=== PATIENT | male | born 1960 | race Caucasian/White ===

== ENCOUNTER 2018-01-03 07:35 | Outpatient (CLI) | payer OTHER ==
--- NOTE | 2018-01-03 08:31 | ULT ---
GALLBLADDER U LTRASOUND: Date: 01/03/18 HISTORY: Hepatitis C. FINDINGS: Gallbladder has a normal sonographic appearance. No evidence of gallstones. Common duct is normal deven iber at 3.0 mm. The visualized liver appears unremarkable. Aorta and IVC appear unremarkable as image d. Right kidney is imaged and appears unremarkable. Pancreas is mostly obscured. Visualized portions of the pancreas appear unremarkable. IMPRESSION: Unremarkable right upper quadrant ultrasound. POS: [facility]
== END 2018-01-03 07:36 | disposition home or self-care (01) ==
LOC: MADRAD 07:35
PROVIDERS: ATTEND Internal Medicine Gastroenterology
DX: B18.2 Chronic viral hepatitis C (principal)
CPT/HCPCS: 76705

== ENCOUNTER 2018-01-16 11:52 | Outpatient (CLI) | payer OTHER ==
--- NOTE | 2018-01-16 12:46 | RAD ---
RIGHT HIP: Two views. HISTORY: Right hip pain. FINDINGS: Femoral head contour is normal. Minimal degenerative change with minimal spurring from the femoral h ead. Joint space appears normal. No fracture or acute abnormality. IMPRESSION: Minimal degenerative change at right hip. POS: [facility]
--- NOTE | 2018-01-16 12:47 | RAD ---
TWO VIEWS LEFT HIP: 01/16/2018 HISTORY: Chronic left hip pain. FINDINGS/IMPRESSION: There is no evidence of a fracture, dislocation, or other osseous abnormality involving the left hip. POS: [facility]
--- NOTE | 2018-01-16 14:26 | RAD ---
THREE VIEWS LUMBAR SPINE: 01/16/2018 HISTORY: Chronic low back pain without history of trauma. FINDINGS: There are 5 [id number] lumbar-type vertebral bodies. The vertebral body heights are within norm al limits. There is mild narrowing of the L5-S1 intervertebral disk space with endplate degenerative changes at this level. No fracture or subluxation is seen. Minimal osteophytes are seen involving the lower lumbar spine. Vascular calcification seen at the thoracic aorta. IMPRESSION: 1. Mild degenerative changes in the lower lumbar spine, but no fracture or subluxation is seen. 2. Atherosclerotic vascular calcifications in the abdominal aorta and iliac arteries. POS: [facility]
--- NOTE | 2018-01-16 15:37 | RAD ---
PA AND LATERAL CHEST X-RAY: 01/16/2018 HISTORY: Hemoptysis. History of smoking. COMPARISON: None available. FINDINGS: The cardiac silhouette and pulmonary vasculature are within normal limits. The lungs are clear. Mul tiple anchor screws overlie the left humeral head. Remote lateral left-sided rib fractures are prese nt. IMPRESSION: No acute cardiopulmonary process. POS: [facility]
== END 2018-01-16 11:53 | disposition home or self-care (01) ==
LOC: MADRAD 11:52
PROVIDERS: ATTEND Physician Assistant
DX: M54.5 Low back pain (principal); R04.2 Hemoptysis; M47.896 Other spondylosis, lumbar region; I70.0 Atherosclerosis of aorta; I70.8 Atherosclerosis of other arteries
CPT/HCPCS: 71046; 72100

== ENCOUNTER 2018-01-21 10:51 | Emergency (ER) | payer OTHER ==
[2018-01-21] MEDS ORDERED: AMOXicillin 250 MG CAP ONE (11:24)
[2018-01-21] MEDS ORDERED: Dexamethasone 10 MG/ML VIAL ONE (11:24)
[2018-01-21] MEDS ORDERED: methylPREDNISolone Sod Succ/PF 125 MG/2 ML VIAL ONE (11:24)
[2018-01-21] MEDS ORDERED: Phenergan/Codeine 10-6.25mg/5ml UDCUP ONE (11:24)
[2018-01-21 11:43] LABS: #Basophils 0.1 thou/uL (0.0-0.2); #Eosinphils 0.1 thou/uL (0.0-0.7); #Lymphocytes 2.8 thou/uL (1.20-3.40); #Monocytes 0.8 thou/uL (0.11-0.59); #Neutrophils 9.1 thou/uL (1.40-6.50); %Basophils 0.7 % (0.0-1.0); %Eosinophils 0.4 % (0.0-10.0); %Monocytes 5.9 % (0.0-10.0); Hemoglobin 12.4 g/dL (14.0-18.0); Mean Corpuscular Hemoglobin 30.4 pg (27.0-31.0); Mean Corpuscular Volume 92.1 fl (80.0-94.0); Mean Platelet Volume 6.4 fL (7.4-10.4); Platelet Count 402 thou/uL (130-400); RBC Distribution Width 12.7 % (11.5-14.5); Red Blood Cell (RBC) Count 4.09 mill/uL (4.70-6.10); White Blood Cell (WBC) Count 12.8 thou/uL (4.8-10.8)
[2018-01-21] MEDS ORDERED: Magnesium Sulfate 2 GM/NS 0.9% 50 ML BAG ONE (11:44)
[2018-01-21 11:58] LABS: CKMB 4.3 ng/mL (0-6.6); Troponin I Less than 0.010 ng/mL (< 0.028)
--- NOTE | 2018-01-21 13:17 | RAD ---
PORTABLE CHEST: Date: 01/21/18 HISTORY: Cough. FINDINGS: Heart size and mediastinum are within normal limits. Lungs are clear of any infiltrative process. Pos toperative changes left shoulder noted. IMPRESSION: No active intrathoracic disease. POS: [facility]
== END 2018-01-21 13:05 | disposition home or self-care (01) ==
LOC: MADERS 10:51
DX: J20.9 Acute bronchitis, unspecified (principal); E11.9 Type 2 diabetes mellitus without complications; Z79.899 Other long term (current) drug therapy; Z79.82 Long term (current) use of aspirin; Z79.84 Long term (current) use of oral hypoglycemic drugs
CPT/HCPCS: 71045; 82553; 83880; 84484; 85025; 94640; 96365; 96375; J1100; J2930; J3475; J7620

== ENCOUNTER 2018-02-01 13:26 | Emergency (ER) | payer OTHER ==
[~2018-02-01 13:26] MED LIST: Sodium Chloride 0.9% 1,000 ML BAG ONE
[2018-02-01 14:08] LABS: #Basophils 0.1 thou/uL (0.0-0.2); #Lymphocytes 1.9 thou/uL (1.20-3.40); #Monocytes 0.3 thou/uL (0.11-0.59); #Neutrophils 12.8 thou/uL (1.40-6.50); %Basophils 0.4 % (0.0-1.0); %Eosinophils 0.1 % (0.0-10.0); %Lymphocytes 12.4 % (21.0-51.0); %Monocytes 1.9 % (0.0-10.0); %Neutrophils 85.2 % (42.0-75.0); Hemoglobin 12.5 g/dL (14.0-18.0); Mean Corpuscular HGB CONC 32.6 g/dL (32.0-36.0); Mean Corpuscular Hemoglobin 29.8 pg (27.0-31.0); Mean Corpuscular Volume 91.4 fl (80.0-94.0); Mean Platelet Volume 6.2 fL (7.4-10.4); Platelet Count 408 thou/uL (130-400)
[2018-02-01] MEDS ORDERED: AMOXicillin 250 MG CAP ONE (14:16)
[2018-02-01] MEDS ORDERED: Dexamethasone 10 MG/ML VIAL ONE (14:16)
[2018-02-01] MEDS ORDERED: Benzonatate 100 MG CAP ONE (14:16)
[2018-02-01] MEDS ORDERED: Magnesium Sulfate 2 GM/NS 0.9% 50 ML BAG ONE (14:16)
[2018-02-01] MEDS ORDERED: methylPREDNISolone Sod Succ/PF 125 MG/2 ML VIAL ONE (14:16)
[2018-02-01 14:17] LABS: Prothrombin Time 13.5 SEC (12.0-14.7)
[2018-02-01 14:28] LABS: ALT (SGPT) 44 U/L (8-55); AST (SGOT) 21 U/L (5-34); Albumin 3.9 g/dL (3.5-5.0); Alkaline Phosphatase 55 U/L (40-150); Anion Gap 18 mmol/L (10-20); BUN (Urea Nitrogen) 19 mg/dL (8.4-25.7); Bilirubin, Total 0.3 mg/dL (0.2-1.2); CK (CPK) 104 U/L (30-200); Calc. Creatinine Clearance 0 mL/min (70-130); Calcium 9.1 mg/dL (7.8-10.44); Carbon Dioxide 24 mmol/L (22-29); Chloride 99 mmol/L (98-107); Estimated GFR-MDRD 80; Globulin 3.2 g/dL (2.4-3.5); Glucose 206 mg/dL (70-105); Potassium 3.9 mmol/L (3.5-5.1); Protein, Total 7.1 g/dL (6.0-8.3); Sodium 137 mmol/L (136-145)
[2018-02-01 14:33] LABS: CKMB 4.8 ng/mL (0-6.6); Troponin I 0.011 ng/mL (< 0.028)
--- NOTE | 2018-02-01 15:11 | RAD ---
CHEST PA AND LATERAL 2 VIEWS: Date: 02/01/18 HISTORY: 57-year-old male with history of dyspnea for 1 month. History of COPD. COMPARISON: 01/16/18. FINDINGS: Heart size is normal. Minimal stable bilateral pleural thickening. Atherosclerosis of aorta. Postop c hanges left shoulder. IMPRESSION: Mild stable chronic lung changes. No evidence of pneumonia or other acute process. POS: [facility]
== END 2018-02-01 17:35 | disposition home or self-care (01) ==
LOC: MADERS 13:26
DX: J44.9 Chronic obstructive pulmonary disease, unspecified (principal); E11.40 Type 2 diabetes mellitus with diabetic neuropathy, unspecified; F31.9 Bipolar disorder, unspecified; F41.9 Anxiety disorder, unspecified; I10 Essential (primary) hypertension; Z87.891 Personal history of nicotine dependence; Z79.84 Long term (current) use of oral hypoglycemic drugs; Z79.82 Long term (current) use of aspirin; Z79.899 Other long term (current) drug therapy
CPT/HCPCS: 71046; 80053; 82553; 83880; 84484; 85025; 85610; 85730; 87081; 87430; 87804; 93005; 94760; 96361; 96365; 96375; J1100; J2930; J3475; J7050; J7620

== ENCOUNTER 2018-02-09 12:04 | Emergency (ER) | payer OTHER ==
[2018-02-09] MEDS ORDERED: methylPREDNISolone Sod Succ/PF 125 MG/2 ML VIAL ONE (12:38)
[2018-02-09 12:45] LABS: Hemoglobin 13.5 g/dL (14.0-18.0); Mean Corpuscular Hemoglobin 29.7 pg (27.0-31.0); Mean Corpuscular Volume 91.3 fL (80.0-94.0); Red Blood Cell (RBC) Count 4.53 mill/uL (4.70-6.10); White Blood Cell (WBC) Count 10.9 thou/uL (4.8-10.8)
[2018-02-09 12:46] LABS: #Eosinphils 0.1 thou/uL (0.0-0.7); #Lymphocytes 3.1 thou/uL (1.20-3.40); #Monocytes 0.8 thou/uL (0.11-0.59); %Basophils 0.4 % (0.0-1.0); %Eosinophils 0.7 % (0.0-10.0); %Lymphocytes 27.9 % (21.0-51.0); %Monocytes 7.1 % (0.0-10.0); Mean Corpuscular HGB CONC 32.6 g/dL (32.0-36.0); Platelet Count 383 thou/uL (130-400); RBC Distribution Width 13.2 % (11.5-14.5)
[2018-02-09 12:58] LABS: ALT (SGPT) 42 U/L (8-55); AST (SGOT) 23 U/L (5-34); Albumin 3.7 g/dL (3.5-5.0); Alkaline Phosphatase 63 U/L (40-150); Anion Gap 17 mmol/L (10-20); BUN (Urea Nitrogen) 13 mg/dL (8.4-25.7); Bilirubin, Total 0.4 mg/dL (0.2-1.2); Calc. Creatinine Clearance 0 mL/min (70-130); Calcium 9.2 mg/dL (7.8-10.44); Carbon Dioxide 24 mmol/L (22-29); Chloride 97 mmol/L (98-107); Estimated GFR-MDRD 86; Globulin 3.2 g/dL (2.4-3.5); Glucose 103 mg/dL (70-105); Magnesium 1.5 mg/dL (1.6-2.6); Potassium 4.4 mmol/L (3.5-5.1); Protein, Total 6.9 g/dL (6.0-8.3); Sodium 134 mmol/L (136-145)
[2018-02-09 13:00] LABS: CKMB 4.4 ng/mL (0-6.6); Troponin I Less than 0.010 ng/mL (< 0.028)
[2018-02-09] MEDS ORDERED: Magnesium Sulfate 2 GM/NS 0.9% 50 ML BAG ONE (13:10)
--- NOTE | 2018-02-09 13:26 | RAD ---
CHEST ONE VIEW: HISTORY: Dyspnea. COMPARISON: Chest radiograph from 01/21/2018. FINDINGS: There is prominence of the right superior hilum, which is better seen on today's exam than on the byron or. No pneumothorax. No effusion. Multiple left-sided humeral tendon suture anchors. IMPRESSION: Mild prominence of the right superior hilum, appears to represent the pulmonary vessel en face versus a mass. Follow-up CT chest, non-emergently, may be beneficial in this patient. CODE: Lung nodule POS: [facility]
--- NOTE | 2018-02-09 13:58 | CT ---
CT THORAX WITHOUT IV CONTRAST: INDICATIONS: A 57-year-old male with dyspnea and chest pain for four weeks. COMPARISON: None. FINDINGS: There are tree-in-bud nodularities seen within the anteromedial and posteromedial aspects of the righ t lower lobe. There is also some tree-in-bud nodularity within an inferior lingula. There is a smal l, noncalcified pulmonary nodule within the anterolateral right lower lobe, measuring 5 mm. There is a calcified granuloma within the right middle lobe. There are bullae involving the lung apices. Th ere is some mild centrilobular emphysema involving the upper lobes. There is paraseptal emphysema in volving the anterior aspect of the right upper lobe. There are scattered vascular calcifications. No definite pathologically enlarged lymph node is evide nt. There are coronary artery calcifications. No definite acute osseous abnormality is evident. There are tiny hypodensities within the right hepa tic dome that are too small to characterize. IMPRESSION: 1. Tree-in-bud nodularity within the right lower lobe and lingula, suspicious for respiratory bronch iolitis. 2. Mild emphysema. 3. Hypodensities within the right hepatic dome that are difficult to characterize due to their size. POS: [facility]
[2018-02-09] MEDS ORDERED: Azithromycin 500 MG VIAL ONE (14:49)
== END 2018-02-09 16:57 | disposition short-term general hospital (02) ==
LOC: MADERS 12:04
DX: J44.1 Chronic obstructive pulmonary disease with (acute) exacerbation (principal); J44.0 Chronic obstructive pulmonary disease with (acute) lower respiratory infection; J21.9 Acute bronchiolitis, unspecified; I10 Essential (primary) hypertension; E11.40 Type 2 diabetes mellitus with diabetic neuropathy, unspecified; F31.9 Bipolar disorder, unspecified; F41.9 Anxiety disorder, unspecified; Z87.891 Personal history of nicotine dependence; Z79.82 Long term (current) use of aspirin; Z79.899 Other long term (current) drug therapy
CPT/HCPCS: 71045; 71250; 80053; 82553; 83735; 83880; 84484; 85025; 85379; 93005; 94760; 96365; 96375; J0456; J2930; J3475; J7050; J7620

== ENCOUNTER 2018-09-08 10:15 | Emergency (ER) | payer OTHER ==
[2018-09-08] MEDS ORDERED: HYDROcodone/Acetaminophen 5/325 mg Tablet ONE (10:52)
[2018-09-08] MEDS ORDERED: Metoclopramide HCl 10 MG/2 ML VIAL ONE (10:53)
[2018-09-08] MEDS ORDERED: predniSONE 20 MG TAB ONE (10:53)
[2018-09-08 11:05] LABS: #Basophils 0.1 thou/uL (0.0-0.2); #Eosinphils 0.2 thou/uL (0.0-0.7); #Lymphocytes 1.5 thou/uL (1.20-3.40); #Monocytes 0.6 thou/uL (0.11-0.59); #Neutrophils 4.3 thou/uL (1.40-6.50); %Basophils 1.1 % (0.0-1.0); %Lymphocytes 22.2 % (21.0-51.0); %Monocytes 8.4 % (0.0-10.0); %Neutrophils 65.2 % (42.0-75.0); Hemoglobin 13.6 g/dL (14.0-18.0); Mean Corpuscular HGB CONC 33.1 g/dL (32.0-36.0); Mean Corpuscular Hemoglobin 31.4 pg (27.0-31.0); Mean Corpuscular Volume 94.8 fL (78.0-98.0); Mean Platelet Volume 6.7 fL (7.4-10.4); Platelet Count 276 thou/uL (130-400); RBC Distribution Width 12.3 % (11.5-14.5); Red Blood Cell (RBC) Count 4.34 mill/uL (4.70-6.10); White Blood Cell (WBC) Count 6.6 thou/uL (4.8-10.8)
[2018-09-08 11:06] LABS: Prothrombin Time 12.9 SEC (12.0-14.7)
[2018-09-08 11:16] LABS: ALT (SGPT) 84 U/L (8-55); AST (SGOT) 43 U/L (5-34); Albumin 4.2 g/dL (3.5-5.0); Alkaline Phosphatase 66 U/L (40-150); Anion Gap 14 mmol/L (10-20); BUN (Urea Nitrogen) 9 mg/dL (8.4-25.7); Bilirubin, Total 0.3 mg/dL (0.2-1.2); Calc. Creatinine Clearance 0 mL/min (70-130); Calcium 9.8 mg/dL (7.8-10.44); Carbon Dioxide 29 mmol/L (22-29); Chloride 104 mmol/L (98-107); Estimated GFR-MDRD Greater than 90; Globulin 2.8 g/dL (2.4-3.5); Glucose 95 mg/dL (70-105); Potassium 4.8 mmol/L (3.5-5.1); Sodium 142 mmol/L (136-145)
--- NOTE | 2018-09-08 11:49 | CT ---
CT OF THE BRAIN WITHOUT CONTRAST: Date: 09/08/18 COMPARISON: None. HISTORY: Headache and dizziness for 1 week. Sensitivity to light. TECHNIQUE: Multiple contiguous axial images were obtained in a CT of the brain without contrast. FINDINGS: The brain is normal in morphology and attenuation without focal lesions or confluent areas of infarct ion. There is no evidence of hydrocephalus, intracranial hemorrhage, or extra-axial fluid collection. The calvarium and overlying soft tissues are unremarkable. The visualized paranasal sinuses and masto id air cells are well aerated. IMPRESSION: No evidence of acute intracranial abnormality. POS: [facility]
== END 2018-09-08 11:35 | disposition home or self-care (01) ==
LOC: MADERS 10:15
DX: R51 Headache (principal); J44.9 Chronic obstructive pulmonary disease, unspecified; E11.40 Type 2 diabetes mellitus with diabetic neuropathy, unspecified; F41.9 Anxiety disorder, unspecified; I10 Essential (primary) hypertension; F31.9 Bipolar disorder, unspecified; F20.9 Schizophrenia, unspecified; F17.210 Nicotine dependence, cigarettes, uncomplicated; Z79.899 Other long term (current) drug therapy
CPT/HCPCS: 36415; 70450; 80053; 85025; 85610; 93005; 96372; J2765; J7506

== ENCOUNTER 2019-03-29 17:55 | Emergency (ER) | payer OTHER ==
[~2019-03-29 17:55] MED LIST changes: +Iopamidol 370 76% 200 ML VIAL ONE; -Sodium Chloride 0.9% 1,000 ML BAG ONE; +Sodium Chloride 0.9% 100 ML BAG ONE
[2019-03-29] MEDS ORDERED: Sodium Chloride 0.9% 1,000 ML ONE (18:34)
[2019-03-29] MEDS ORDERED: methylPREDNISolone Sod Succ/PF 125 MG/2 ML VIAL ONE (18:34)
[2019-03-29] MEDS ORDERED: Acetaminophen 500 MG TAB ONE (18:34)
[2019-03-29 18:41] LABS: #Eosinphils 0.1 thou/uL (0.0-0.7); #Lymphocytes 1.4 thou/uL (1.20-3.40); #Monocytes 0.3 thou/uL (0.11-0.59); #Neutrophils 5.1 thou/uL (1.40-6.50); %Basophils 0.6 % (0.0-1.0); %Eosinophils 1.1 % (0.0-10.0); %Lymphocytes 20.5 % (21.0-51.0); %Monocytes 4.5 % (0.0-10.0); %Neutrophils 73.4 % (42.0-75.0); Hemoglobin 14.1 g/dL (14.0-18.0); Mean Corpuscular HGB CONC 32.8 g/dL (32.0-36.0); Mean Corpuscular Hemoglobin 29.9 pg (27.0-31.0); Mean Corpuscular Volume 91.2 fL (78.0-98.0); Mean Platelet Volume 5.5 fL (7.4-10.4); Platelet Count 242 thou/uL (130-400); RBC Distribution Width 12.7 % (11.5-14.5); Red Blood Cell (RBC) Count 4.72 mill/uL (4.70-6.10)
[2019-03-29] MEDS ORDERED: Morphine 4 MG/ML VIAL ONE (18:50)
[2019-03-29 18:54] LABS: ALT (SGPT) 59 U/L (8-55); AST (SGOT) 35 U/L (5-34); Albumin 4.2 g/dL (3.5-5.0); Alkaline Phosphatase 63 U/L (40-150); Anion Gap 15 mmol/L (10-20); BUN (Urea Nitrogen) 15 mg/dL (8.4-25.7); Bilirubin, Total 0.4 mg/dL (0.2-1.2); Calc. Creatinine Clearance 0 mL/min (70-130); Calcium 8.9 mg/dL (7.8-10.44); Carbon Dioxide 24 mmol/L (22-29); Chloride 103 mmol/L (98-107); Estimated GFR-MDRD 60; Globulin 2.8 g/dL (2.4-3.5); Glucose 189 mg/dL (70-105); Potassium 3.7 mmol/L (3.5-5.1); Sodium 138 mmol/L (136-145)
--- NOTE | 2019-03-29 19:58 | CT ---
CT angiogram chest: 03/29/2019 COMPARISON: Noncontrast enhanced chest CT 02/09/2018: Lung cancer, COPD, chest pain and congestion TECHNIQUE: Axial CT imaging obtained at 2.5 mm intervals through the chest with IV contrast using a C T angiogram protocol. Coronal and sagittal 3-D reformatted imaging obtained. FINDINGS: The visualized upper abdomen appears grossly unremarkable. There is small volume pericardia l fluid. No pleural fluid is noted. There is small volume fluid in the superior pericardial recess. There is atherosclerotic calcification involving the aortic arch and the descending thoracic aorta. There is mild distal and mid esophageal wall thickening versus underdistention. A mild degree of esop hagitis cannot be excluded in the proper clinical setting. There are paraseptal emphysematous changes noted within bilateral lung apices. The left lower lobe demonstrates no focal pulmonary parenchymal abnormality. No endobronchial lesion is evident on this examination. Endobronchial abnormality within distal left mainstem bronchus on prior examination is not visualized on this study. Review of the osseous structures demonstrates no worrisome lytic or blastic bone lesion. No filling defects seen within the pulmonary arterial vasculature to suggest the presence of acute pu lmonary arterial embolism. Motion artifact slightly limits detailed assessment of the distal pulmonary arteries supplying bilateral lower lobes. There is minimal increased density within the lung parenchyma in the medial left hilar region involvi ng the left upper lobe on axial image 50, likely on the basis of volume loss or minimal infiltrate. The right lung demonstrates no discrete pulmonary parenchymal mass lesion or nodule. IMPRESSION: Small pericardial effusion. No evidence for pulmonary arterial embolism. Incidental findi ngs as detailed above.
== END 2019-03-29 20:24 | disposition home or self-care (01) ==
LOC: MADERS 17:55
DX: J44.1 Chronic obstructive pulmonary disease with (acute) exacerbation (principal); I10 Essential (primary) hypertension; F41.9 Anxiety disorder, unspecified; F17.210 Nicotine dependence, cigarettes, uncomplicated; Z79.899 Other long term (current) drug therapy
CPT/HCPCS: 71046; 71275; 80053; 83880; 84484; 85025; 93005; 94640; 94760; 96361; 96374; 96375; J2270; J2930; J3490; J7050; J7620

== ENCOUNTER 2019-04-16 16:17 | Emergency (ER) | payer OTHER ==
[~2019-04-16 16:17] MED LIST changes: -Iopamidol 370 76% 200 ML VIAL ONE
[2019-04-16] MEDS ORDERED: Lactated Ringer's 1,000 ML ONE (16:31)
[2019-04-16] MEDS ORDERED: Ketorolac Tromethamine 30 MG/ML VIAL ONE (16:31)
[2019-04-16 17:03] LABS: #Basophils 0.1 thou/uL (0.0-0.2); #Eosinphils 0.1 thou/uL (0.0-0.7); #Lymphocytes 1.6 thou/uL (1.20-3.40); #Monocytes 0.4 thou/uL (0.11-0.59); #Neutrophils 3.5 thou/uL (1.40-6.50); %Basophils 1.4 % (0.0-1.0); %Eosinophils 1.9 % (0.0-10.0); %Lymphocytes 27.3 % (21.0-51.0); %Monocytes 7.5 % (0.0-10.0); %Neutrophils 61.9 % (42.0-75.0); Hemoglobin 13.7 g/dL (14.0-18.0); Mean Corpuscular HGB CONC 33.6 g/dL (32.0-36.0); Mean Corpuscular Hemoglobin 30.5 pg (27.0-31.0); Mean Corpuscular Volume 90.9 fL (78.0-98.0); Platelet Count 209 thou/uL (130-400); RBC Distribution Width 12.9 % (11.5-14.5); Red Blood Cell (RBC) Count 4.49 mill/uL (4.70-6.10); White Blood Cell (WBC) Count 5.7 thou/uL (4.8-10.8)
[2019-04-16] MEDS ORDERED: Morphine 4 MG/ML VIAL ONE (17:13)
[2019-04-16 17:14] LABS: ALT (SGPT) 44 U/L (8-55); AST (SGOT) 35 U/L (5-34); Albumin 3.9 g/dL (3.5-5.0); Alkaline Phosphatase 59 U/L (40-150); Anion Gap 15 mmol/L (10-20); BUN (Urea Nitrogen) 17 mg/dL (8.4-25.7); Bilirubin, Total 0.6 mg/dL (0.2-1.2); Calc. Creatinine Clearance 0 mL/min (70-130); Calcium 8.9 mg/dL (7.8-10.44); Carbon Dioxide 23 mmol/L (22-29); Chloride 106 mmol/L (98-107); Estimated GFR-MDRD 76; Globulin 3.3 g/dL (2.4-3.5); Glucose 125 mg/dL (70-105); Lipase 84 U/L (8-78); Potassium 4.4 mmol/L (3.5-5.1); Protein, Total 7.2 g/dL (6.0-8.3); Sodium 140 mmol/L (136-145)
--- NOTE | 2019-04-16 18:11 | CT ---
CT ABDOMEN AND PELVIS WITH IV CONTRAST 04/16/2019 CLINICAL INFORMATION: Abdominal pain. History of diverticulitis and lung cancer. Patient currently on chemotherapy. History of hepatitis. COMPARISON: None. Technique: Multiple contiguous axial CT images are obtained through the abdomen and pelvis with IV contrast. Cor onal reformatted images are provided. FINDINGS: Lower Chest: A noncalcified 7 mm pulmonary nodule is seen at the right lateral costophrenic angle. Th is measured [address] thorax on 02/09/2018. Bibasilar atelectasis is present. A tiny pericardial effusion is identified. Vessels: Prominent vascular calcifications are seen in the abdominal aorta and involving the iliac ar teries. There is mild aneurysmal dilatation of the mid right renal artery measuring 1.2 cm. Abdomen: Portal vein:Patent Gallbladder: Within normal limits for CT imaging. Liver: Calcified granulomata are seen. Several tiny subcentimeter hypodense lesions are seen scattere d in the right hepatic lobe and in the dome of the liver as well as left hepatic lobe. Pancreas: within normal limits. Spleen: within normal limits. Adrenals: within normal limits. Kidneys: within normal limits. Bowel: There is colonic diverticulosis. There is a pericolonic inflammatory stranding seen in the reg ion of proximal sigmoid colon which may be related to diverticulitis. Appendix: The appendix is visualized and normal in caliber. Peritoneum: There are scattered punctate foci of free intraperitoneal gas primarily seen in the upper abdomen anteriorly as well as adjacent to the proximal sigmoid colon.. No free fluid is seen in the abdomen or pelvis, but findings are worrisome for perforated viscus. Mesentery and Retroperitoneum: No enlarged mesenteric or retroperitoneal lymph nodes. Abdominal Wall: A tiny fat-containing umbilical hernia is present. Pelvis: Reproductive Organs: No pelvic masses. Pelvis within normal limits. Bladder: within normal limits. Bones: Mild degenerative changes are seen in the lower lumbar spine. IMPRESSION: 1. Free intraperitoneal gas with several tiny foci of free intraperitoneal gas seen in the abdomen an teriorly worrisome for perforated viscus. No free fluid is seen. 2. Findings likely attributable to diverticulitis involving the proximal sigmoid colon. Follow-up ramiro luation is recommended to ensure resolution of the inflammatory changes. No fluid collection is seen to suggest an abscess. 3. Pulmonary nodule measuring 7 mm right lung base previously measuring 5 mm on study in 2018. Follow -up evaluation in months is recommended. 4. Tiny too small to characterize hypodense lesions in each lobe of the liver. 5. 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 6. Above findings discussed with Dr. Gutierrez in the emergency performed on 04/16/2019 at 1806 hours.
[2019-04-16] MEDS ORDERED: Piperacillin/Tazobactam 3.375 GM VIAL ONE (18:15)
== END 2019-04-16 20:12 | disposition short-term general hospital (02) ==
LOC: MADERS 16:17
DX: K57.32 Diverticulitis of large intestine without perforation or abscess without bleeding (principal); E11.40 Type 2 diabetes mellitus with diabetic neuropathy, unspecified; J44.9 Chronic obstructive pulmonary disease, unspecified; F41.9 Anxiety disorder, unspecified; F31.9 Bipolar disorder, unspecified; F17.210 Nicotine dependence, cigarettes, uncomplicated; I10 Essential (primary) hypertension; F20.9 Schizophrenia, unspecified; Z79.51 Long term (current) use of inhaled steroids; Z79.899 Other long term (current) drug therapy
CPT/HCPCS: 36415; 74177; 80053; 83690; 85025; 96361; 96365; 96375; J1885; J2270; J2543; J3490; J7120

== ENCOUNTER 2019-07-08 17:23 | Emergency (ER) | payer OTHER ==
[2019-07-08 18:29] LABS: #Basophils 0.1 thou/uL (0.0-0.2); #Lymphocytes 1.2 thou/uL (1.20-3.40); #Monocytes 0.6 thou/uL (0.11-0.59); %Basophils 0.9 % (0.0-1.0); %Eosinophils 0.2 % (0.0-10.0); %Lymphocytes 12.2 % (21.0-51.0); %Monocytes 5.8 % (0.0-10.0); %Neutrophils 80.9 % (42.0-75.0); Hemoglobin 12.2 g/dL (14.0-18.0); Mean Corpuscular HGB CONC 33.1 g/dL (32.0-36.0); Mean Corpuscular Hemoglobin 30.4 pg (27.0-31.0); Mean Corpuscular Volume 91.8 fL (78.0-98.0); Mean Platelet Volume 5.7 fL (7.4-10.4); Platelet Count 397 thou/uL (130-400); RBC Distribution Width 12.1 % (11.5-14.5); Red Blood Cell (RBC) Count 4.02 mill/uL (4.70-6.10); White Blood Cell (WBC) Count 9.9 thou/uL (4.8-10.8)
[2019-07-08] MEDS ORDERED: Morphine 4 MG/ML VIAL ONE ×2 (18:33→19:56)
[2019-07-08] MEDS ORDERED: Ondansetron PF 4 MG/2 ML Vial ONE ×2 (18:33→19:56)
[2019-07-08] MEDS ORDERED: Sodium Chloride 0.9% 1,000 ML ONE ×2 (18:33→19:32)
[2019-07-08 18:47] LABS: ALT (SGPT) 44 U/L (8-55); AST (SGOT) 32 U/L (5-34); Albumin 3.7 g/dL (3.5-5.0); Alkaline Phosphatase 56 U/L (40-150); Anion Gap 16 mmol/L (10-20); BUN (Urea Nitrogen) 16 mg/dL (8.4-25.7); Bilirubin, Total 0.4 mg/dL (0.2-1.2); CK (CPK) 50 U/L (30-200); Calc. Creatinine Clearance 0 mL/min (70-130); Calcium 8.8 mg/dL (7.8-10.44); Carbon Dioxide 22 mmol/L (22-29); Chloride 101 mmol/L (98-107); Estimated GFR-MDRD 68; Glucose 148 mg/dL (70-105); Lipase 48 U/L (8-78); Potassium 3.9 mmol/L (3.5-5.1); Protein, Total 6.7 g/dL (6.0-8.3); Sodium 135 mmol/L (136-145)
--- NOTE | 2019-07-08 19:03 | RAD ---
CHEST ONE VIEW: ABDOMEN TWO VIEWS HISTORY: Pain. COMPARISON: 04/17/2019 FINDINGS: CHEST: Normal cardiac silhouette. Pulmonary vessels and hilum are normal. Costophrenic angles are clear. No mass. No consolidation. No pneumothorax or osseous abnormalities. ABDOMEN: Nonspecific bowel gas pattern. No suspicious densities in the abdomen or pelvis. No pneum operitoneum. No differential air-fluid levels. IMPRESSION: 1. No acute cardiopulmonary process. 2. Nonspecific bowel gas pattern. POS: [facility]
[2019-07-08] MEDS ORDERED: Meropenem 1 GM VIAL ONE (19:29)
[2019-07-08] MEDS ORDERED: Sodium Chloride 0.9% 100 ML ONE (19:29)
[2019-07-08] MEDS ORDERED: Ibuprofen 400 MG TAB ONE (20:16)
[2019-07-08 20:18] LABS: Bilirubin Small (Negative); Blood, Urine Negative (Negative); Clarity Clear (Clear); Glucose, Urine (Dipstick) Negative (Negative); Leukocyte Negative (Negative); Nitrite Negative (Negative); Protein, Urine (Dipstick) Trace mg/dL (Neg-Trace)
== END 2019-07-08 20:24 | disposition short-term general hospital (02) ==
LOC: MADERS 17:23
DX: A41.9 Sepsis, unspecified organism (principal); K65.0 Generalized (acute) peritonitis; I10 Essential (primary) hypertension; E11.40 Type 2 diabetes mellitus with diabetic neuropathy, unspecified; J44.9 Chronic obstructive pulmonary disease, unspecified; Z85.118 Personal history of other malignant neoplasm of bronchus and lung; F31.9 Bipolar disorder, unspecified; F41.9 Anxiety disorder, unspecified; F20.9 Schizophrenia, unspecified; F17.210 Nicotine dependence, cigarettes, uncomplicated; Z79.899 Other long term (current) drug therapy; Z79.51 Long term (current) use of inhaled steroids
CPT/HCPCS: 36415; 74022; 80053; 81003; 82150; 82550; 83605; 83690; 85025; 86140; 87040; 87086; 94760; 96361; 96365; 96375; 96376; J2185; J2270; J2405; J3490; J7050

== ENCOUNTER 2021-03-09 12:04 | Emergency (ER) | payer OTHER ==
[2021-03-09] MEDS ORDERED: HYDROmorphone 0.5 MG/0.5 ML SYRINGE ONE (12:49)
== END 2021-03-09 13:15 | disposition home or self-care (01) ==
LOC: MADERS 12:04
DX: M79.10 Myalgia, unspecified site (principal); M25.50 Pain in unspecified joint; I10 Essential (primary) hypertension; E11.40 Type 2 diabetes mellitus with diabetic neuropathy, unspecified; J44.9 Chronic obstructive pulmonary disease, unspecified; Z85.118 Personal history of other malignant neoplasm of bronchus and lung; Z79.899 Other long term (current) drug therapy; Z87.19 Personal history of other diseases of the digestive system; Z87.891 Personal history of nicotine dependence
CPT/HCPCS: 96372; 99283; J1170

== ENCOUNTER 2021-09-08 17:26 | Outpatient (CLI) | payer OTHER | END 2021-09-08 17:27 | disposition home or self-care (01) | LOC: MADRAD 17:26 | PROVIDERS: ATTEND Physician Assistant | DX: R94.2 Abnormal results of pulmonary function studies (principal); J98.4 Other disorders of lung | CPT/HCPCS: 71046 ==

== ENCOUNTER 2021-09-08 17:46 | Emergency (ER) | payer OTHER ==
[2021-09-08] MEDS ORDERED: Ketorolac Tromethamine 60 MG/2 ML VIAL ONE (18:38)
[2021-09-08] MEDS ORDERED: Orphenadrine Citrate 60 MG/2 ML VIAL ONE (18:38)
== END 2021-09-08 19:00 | disposition home or self-care (01) ==
LOC: MADERS 17:46
DX: G89.29 Other chronic pain (principal); M54.50 Low back pain, unspecified; I10 Essential (primary) hypertension; E11.40 Type 2 diabetes mellitus with diabetic neuropathy, unspecified; J44.9 Chronic obstructive pulmonary disease, unspecified; Z87.891 Personal history of nicotine dependence; Z79.899 Other long term (current) drug therapy; Z79.01 Long term (current) use of anticoagulants; R94.2 Abnormal results of pulmonary function studies; J98.4 Other disorders of lung
CPT/HCPCS: 71046; 96372; 99283; J1885; J2360

== ENCOUNTER 2021-09-09 14:26 | Emergency (ER) | payer OTHER ==
[~2021-09-09 14:26] MED LIST changes: +Iopamidol 370 76% 125 ML VIAL FS ONE
[2021-09-09] MEDS ORDERED: Acetaminophen 500 MG TAB ONE (15:05)
[2021-09-09 15:10] LABS: #Basophils 0.1 thou/uL (0.0-0.2); #Eosinphils 0.1 thou/uL (0.0-0.7); #Lymphocytes 0.9 thou/uL (1.20-3.40); #Monocytes 0.7 thou/uL (0.11-0.59); #Neutrophils 5.5 thou/uL (1.40-6.50); %Basophils 1.7 % (0.0-1.0); %Eosinophils 1.2 % (0.0-10.0); %Neutrophils 75.2 % (42.0-75.0); Hemoglobin 14.5 g/dL (14.0-18.0); Mean Corpuscular HGB CONC 32.7 g/dL (32.0-36.0); Mean Corpuscular Hemoglobin 29.9 pg (27.0-31.0); Mean Corpuscular Volume 91.5 fL (78.0-98.0); Mean Platelet Volume 6.2 fL (7.4-10.4); Platelet Count 230 thou/uL (130-400); RBC Distribution Width 12.6 % (11.5-14.5); Red Blood Cell (RBC) Count 4.84 mill/uL (4.70-6.10); White Blood Cell (WBC) Count 7.3 thou/uL (4.8-10.8)
[2021-09-09 15:25] LABS: ALT (SGPT) 33 U/L (8-55); AST (SGOT) 31 U/L (5-34); Albumin 3.8 g/dL (3.4-4.8); Alkaline Phosphatase 55 U/L (40-110); Anion Gap 14 mmol/L (10-20); BUN (Urea Nitrogen) 11 mg/dL (8.4-25.7); Bilirubin, Total 0.5 mg/dL (0.2-1.2); Calc. Creatinine Clearance 0 mL/min (70-130); Calcium 9.2 mg/dL (7.8-10.44); Carbon Dioxide 26 mmol/L (23-31); Chloride 105 mmol/L (98-107); Globulin 3.1 g/dL (2.4-3.5); Glucose 103 mg/dL (80-115); Potassium 3.7 mmol/L (3.5-5.1); Protein, Total 6.9 g/dL (5.8-8.1); Sodium 141 mmol/L (136-145)
[2021-09-09 17:18] LABS: Troponin I Less than 0.010 ng/mL (< 0.028)
[2021-09-09] MEDS ORDERED: Ketorolac Tromethamine 30 MG/ML VIAL ONE (17:51)
[2021-09-09] MEDS ORDERED: Metoprolol Tartrate 50 MG TAB ONE (17:51)
== END 2021-09-09 18:20 | disposition home or self-care (01) ==
LOC: MADERS 14:26
DX: I48.91 Unspecified atrial fibrillation (principal); I10 Essential (primary) hypertension; E11.40 Type 2 diabetes mellitus with diabetic neuropathy, unspecified; J44.9 Chronic obstructive pulmonary disease, unspecified; Z87.891 Personal history of nicotine dependence; Z79.84 Long term (current) use of oral hypoglycemic drugs; Z79.01 Long term (current) use of anticoagulants; Z79.899 Other long term (current) drug therapy
CPT/HCPCS: 36415; 71045; 71275; 80053; 83880; 84484; 85025; 93005; 96374; J1885; J3490; Q9967

== ENCOUNTER 2021-09-14 10:49 | Emergency (ER) | payer OTHER ==
[2021-09-14 11:50] LABS: #Basophils 0.1 thou/uL (0.0-0.2); #Eosinphils 0.1 thou/uL (0.0-0.7); #Lymphocytes 1.7 thou/uL (1.20-3.40); #Monocytes 0.6 thou/uL (0.11-0.59); #Neutrophils 4.2 thou/uL (1.40-6.50); %Eosinophils 2.1 % (0.0-10.0); %Lymphocytes 25.7 % (21.0-51.0); %Monocytes 8.9 % (0.0-10.0); %Neutrophils 62.3 % (42.0-75.0); Hemoglobin 14.6 g/dL (14.0-18.0); Mean Corpuscular HGB CONC 32.3 g/dL (32.0-36.0); Mean Corpuscular Hemoglobin 29.8 pg (27.0-31.0); Mean Corpuscular Volume 92.3 fL (78.0-98.0); Mean Platelet Volume 6.9 fL (7.4-10.4); Platelet Count 289 thou/uL (130-400); RBC Distribution Width 12.8 % (11.5-14.5); Red Blood Cell (RBC) Count 4.91 mill/uL (4.70-6.10); White Blood Cell (WBC) Count 6.8 thou/uL (4.8-10.8)
[2021-09-14 12:05] LABS: ALT (SGPT) 38 U/L (8-55); AST (SGOT) 30 U/L (5-34); Alkaline Phosphatase 50 U/L (40-110); Anion Gap 13 mmol/L (10-20); BUN (Urea Nitrogen) 10 mg/dL (8.4-25.7); Bilirubin, Total 0.4 mg/dL (0.2-1.2); Calc. Creatinine Clearance 0 mL/min (70-130); Calcium 9.7 mg/dL (7.8-10.44); Carbon Dioxide 29 mmol/L (23-31); Chloride 104 mmol/L (98-107); Globulin 2.8 g/dL (2.4-3.5); Glucose 93 mg/dL (80-115); Magnesium 1.7 mg/dL (1.6-2.6); Potassium 4.9 mmol/L (3.5-5.1); Protein, Total 6.8 g/dL (5.8-8.1); Sodium 141 mmol/L (136-145)
[2021-09-14 12:23] LABS: Bilirubin Negative (Negative); Blood, Urine Negative (Negative); Clarity Clear (Clear); Glucose, Urine (Dipstick) Negative (Negative); Ketone, Urine Negative (Negative); Leukocyte Negative (Negative); Nitrite Negative (Negative); Protein, Urine (Dipstick) Negative (Neg-Trace); Urobilinogen 0.2 mg/dL (Less than 2)
== END 2021-09-14 17:00 | disposition short-term general hospital (02) ==
LOC: MADERS 10:49
DX: R07.9 Chest pain, unspecified (principal); E11.40 Type 2 diabetes mellitus with diabetic neuropathy, unspecified; I48.91 Unspecified atrial fibrillation; E78.00 Pure hypercholesterolemia, unspecified; I10 Essential (primary) hypertension; J44.9 Chronic obstructive pulmonary disease, unspecified; Z87.891 Personal history of nicotine dependence; Z79.899 Other long term (current) drug therapy; Z79.01 Long term (current) use of anticoagulants
CPT/HCPCS: 36415; 71045; 80053; 81003; 83735; 83880; 84484; 85025; 93005

== ENCOUNTER 2024-08-30 11:48 | Emergency (ER) | payer OTHER ==
[~2024-08-30 11:48] MED LIST changes: +Iopamidol 370 76% 100 ML VIAL ONE; -Iopamidol 370 76% 125 ML VIAL FS ONE; -Sodium Chloride 0.9% 100 ML BAG ONE
[2024-08-30] MEDS ORDERED: Nitroglycerin 0.4 MG TAB 1 EACH ONE (12:06)
[2024-08-30 12:15] LABS: #Basophils 0.1 thou/uL (0.0-0.2); #Eosinophils 0.1 thou/uL (0.0-0.7); #Lymphocytes 1.6 thou/uL (1.20-3.40); #Monocytes 0.6 thou/uL (0.11-0.59); #Neutrophils 5.1 thou/uL (1.40-6.50); %Basophils 0.7 % (0.0-1.0); %Eosinophils 0.8 % (0.0-10.0); %Lymphocytes 21.7 % (21.0-51.0); %Monocytes 7.7 % (0.0-10.0); %Neutrophils 69.1 % (42.0-75.0); Hematocrit 44.9 % (42.0-52.0); Hemoglobin 14.2 g/dL (14.0-18.0); Mean Corpuscular HGB CONC 31.6 g/dL (32.0-36.0); Mean Corpuscular Hemoglobin 28.8 pg (27.0-31.0); Mean Corpuscular Volume 91.4 fl (78.0-98.0); Mean Platelet Volume 7.4 fL (7.4-10.4); Platelet Count 244 10x3/uL (130-400); RBC Distribution Width 12.7 % (11.5-14.5); Red Blood Cell (RBC) Count 4.91 mill/uL (4.70-6.10); White Blood Cell (WBC) Count 7.4 10x3/uL (4.8-10.8)
[2024-08-30] MEDS ORDERED: Morphine 2 MG/ML VIAL ONE (12:30)
[2024-08-30 12:33] LABS: ALT (SGPT) 22 U/L (8-55); AST (SGOT) 22 U/L (5-34); Albumin 4.1 g/dL (3.4-4.8); Alkaline Phosphatase 59 U/L (40-110); Anion Gap 15 mmol/L (10-20); BUN (Urea Nitrogen) 8 mg/dL (8.4-25.7); Bilirubin, Total 0.4 mg/dL (0.2-1.2); Calc. Creatinine Clearance 0 mL/min (70-130); Calcium 9.4 mg/dL (7.8-10.44); Carbon Dioxide 27 mmol/L (23-31); Chloride 103 mmol/L (98-107); Estimated GFR 97; Globulin 3.7 g/dL (2.4-3.5); Glucose 94 mg/dL (80-115); Potassium 4.9 mmol/L (3.5-5.1); Protein, Total 7.8 g/dL (5.8-8.1); Sodium 140 mmol/L (136-145)
[2024-08-30 12:34] LABS: Troponin I Less than 0.010 ng/mL (< 0.028)
[2024-08-30] MEDS ORDERED: HYDROmorphone 0.5 MG/0.5 ML SYRINGE ONE (13:39)
[2024-08-30 14:47] LABS: Troponin I Less than 0.010 ng/mL (< 0.028)
== END 2024-08-30 14:56 | disposition short-term general hospital (02) ==
LOC: MADERS 11:48
DX: R07.9 Chest pain, unspecified (principal); I10 Essential (primary) hypertension; E11.40 Type 2 diabetes mellitus with diabetic neuropathy, unspecified; K21.9 Gastro-esophageal reflux disease without esophagitis; Z55.6 Problems related to health literacy; Z79.899 Other long term (current) drug therapy; Z79.01 Long term (current) use of anticoagulants; Z87.891 Personal history of nicotine dependence
CPT/HCPCS: 71045; 71275; 80053; 83880; 84484; 85025; 85379; 93005; 96374; 96375; J2272; Q9967

== ENCOUNTER 2024-12-08 18:06 | Emergency (ER) | payer MEDICARE, SELFPAY ==
[2024-12-08] MEDS ORDERED: Sodium Chloride 0.9% 100 ML ONE ×2 (18:37→19:51)
[2024-12-08] MEDS ORDERED: cefTRIAXone (ROCEPHIN) 1 GM VIAL ONE (18:37)
[2024-12-08 19:01] LABS: Hematocrit 40.1 % (42.0-52.0); Hemoglobin 12.7 g/dL (14.0-18.0); Mean Corpuscular HGB CONC 31.7 g/dL (32.0-36.0); Mean Corpuscular Hemoglobin 28.5 pg (27.0-31.0); Mean Platelet Volume 7.9 fL (7.4-10.4); Platelet Count 245 10x3/uL (130-400); RBC Distribution Width 12.2 % (11.5-14.5); Red Blood Cell (RBC) Count 4.46 mill/uL (4.70-6.10); White Blood Cell (WBC) Count 9.6 10x3/uL (4.8-10.8)
[2024-12-08 19:09] LABS: ALT (SGPT) 15 U/L (Less than 45); AST (SGOT) 22 U/L (11-34); Albumin 3.5 g/dL (3.1-4.5); Alkaline Phosphatase 54 U/L (40-110); Anion Gap 23 mmol/L (10-20); BUN (Urea Nitrogen) 52 mg/dL (8.4-25.7); Bilirubin, Total 0.5 mg/dL (0.3-1.2); Calc. Creatinine Clearance 0 mL/min (70-130); Calcium 9.2 mg/dL (7.8-10.44); Carbon Dioxide 24 mmol/L (23-31); Chloride 100 mmol/L (98-107); Estimated GFR 14; Globulin 3.1 g/dL (2.4-3.5); Glucose 105 mg/dL (80-115); Potassium 4.9 mmol/L (3.5-5.1); Protein, Total 6.6 g/dL (5.8-8.1); Sodium 142 mmol/L (136-145)
[2024-12-08 19:14] LABS: Lymphocytes 7 % (21-51); MDiff Complete? YES; Manual Diff?? YES; Neutrophil 81 % (42-75); Reactive Lymphocytes 9 % (0-10)
[2024-12-08 19:15] LABS: Base Excess-Venous -0.6 mmol/L (-2.0 to 3.0); CO2 Tension (PvCO2) 78.3 mmHg (42.0-51.0); Calcium, Ionized 1.17 mmol/L (1.15-1.33); Chloride 102 mmol/L (98-107); Eosinophils 2 % (0-10); Hemoglobin - Calc 14.7 g/dL (14.0-18.0); Monocytes 1 % (0-10); Platelet Adequacy Comment Appears Adequate; Potassium 4.4 mmol/L (3.5-5.1); Sodium 141 mmol/L (138-145); T. Carbon Dioxide 32.4 mmol/L (22.0-28.0); vO2 Saturation-calc 80.2 % (60.0-85.0)
[2024-12-08] MEDS ORDERED: Sodium Chloride 0.9% 250 ML 250 ML ONE (19:51)
[2024-12-08] MEDS ORDERED: Vancomycin 1 GM VIAL ONE (19:51)
[2024-12-08] MEDS ORDERED: Cefepime 2 GM VIAL ONE (19:51)
[2024-12-08] MEDS ORDERED: NOREPINEPHRINE 8 MG/250 ML-D5W 250 ML ONE (20:51)
== END 2024-12-08 21:10 | disposition short-term general hospital (02) ==
LOC: MADERS 18:06
DX: A41.9 Sepsis, unspecified organism (principal); R10.84 Generalized abdominal pain; N17.9 Acute kidney failure, unspecified; K81.9 Cholecystitis, unspecified; I10 Essential (primary) hypertension; J44.9 Chronic obstructive pulmonary disease, unspecified; I48.91 Unspecified atrial fibrillation; E11.40 Type 2 diabetes mellitus with diabetic neuropathy, unspecified; Z79.01 Long term (current) use of anticoagulants; Z79.84 Long term (current) use of oral hypoglycemic drugs; Z79.51 Long term (current) use of inhaled steroids; Z79.899 Other long term (current) drug therapy
CPT/HCPCS: 36415; 70450; 71045; 72125; 74177; 80053; 82330; 82435; 82803; 83605; 84132; 84295; 85014; 85025; 87040; 87428; 93005; 94760; 96374; 96375; J0692; J0696; J3370; J7050; Q9967

== ENCOUNTER 2025-01-19 13:15 | Emergency (ER) | payer MEDICARE, MEDICAID | END 2025-01-19 14:23 | disposition home or self-care (01) | LOC: MADERS 13:15 | DX: K59.00 Constipation, unspecified (principal); E11.9 Type 2 diabetes mellitus without complications; I11.0 Hypertensive heart disease with heart failure; I50.9 Heart failure, unspecified; I48.91 Unspecified atrial fibrillation | CPT/HCPCS: 99283 ==